=== PATIENT | female | born 1950 | race Caucasian/White ===

== ENCOUNTER 2017-03-07 07:31 | Outpatient (CLI) | payer MEDICARE, BC ==
--- NOTE | 2017-03-07 12:56 | MRI Preliminary Report ---
Exam: MRI UPPER ARM/HUMERUS RT W/O IMPRESSION: 1. Long head biceps tendon grossly intact. 2. Mild biceps tenosynovitis versus extension of joint fluid. 3. No evidence of muscle strain. 4. Distal biceps tendon not included in the epxls-ja-ipbn. If there is clinical concern for abnormali ty at the distal biceps tendon, MRI of the elbow could be performed. 5. A 4.4 cm fat-containing lesion partially visualized in the biceps muscle. This is incompletely serena luated on the current exam. Findings suggestive of an intramuscular lipoma. [facility] MUSCULOSKELET[facility] SECTION SITE ID: [id number]
--- NOTE | 2017-03-07 13:56 | MRI Report ---
EXAM: RIGHT HUMERUS MRI WITHOUT CONTRST EXAM DATE: 03/07/2017 08:47 AM. CLINICAL HISTORY: Spontaneous rupture of other tendons, right upper arm. COMPARISON: None. TECHNIQUE: Multiplanar, multisequence T1-weighted and fluid-sensitive sequences of the humerus/upper arm without contrast. Other: None. FINDINGS: Bones: No fracture or bone lesion. Joint Spaces: Minimal joint effusion partially visualized at the glenohumeral joint. Evaluation of th is shoulder limited on the large qegkw-ci-rnoh. Tendons: Where visualized, the extra-articular portion of the biceps tendon is intact. Small amount o f excess fluid in the tendon sheath. Evaluation of the intra-articular portion limited on these field s-of-view. Distal biceps tendon not included in the razve-pi-cueq. Musculature: No edema or fatty atrophy. A 1.8 by 1.5 by at least 4.3 cm fat-containing lesion partial ly visualized in the mid to distal aspect of the biceps muscle. This extends outside the jpbcg-lh-drv w. Other: The subcutaneous tissues are unremarkable. IMPRESSION: 1. Long head biceps tendon grossly intact. 2. Mild biceps tenosynovitis versus extension of joint fluid. 3. No evidence of muscle strain. 4. Distal biceps tendon not included in the qpomi-yq-xgzs. If there is clinical concern for abnormali ty at the distal biceps tendon, MRI of the elbow could be performed. 5. A 4.4 cm fat-containing lesion partially visualized in the biceps muscle. This is incompletely serena luated on the current exam. Findings suggestive of an intramuscular lipoma. If there is clinical conc aminata at this site (i.E. Focal pain or increasing size), MRI with IV contrast could be performed for fu rther characterization. [facility]CULOSKE[facility] SECTION Referring Provider Line: [phone] SITE ID: [id number]
== END 2017-03-07 07:32 | disposition home or self-care (01) ==
LOC: DI 07:31
PROVIDERS: ATTEND Family Medicine
DX: M66.821 Spontaneous rupture of other tendons, right upper arm (principal)

== ENCOUNTER 2017-11-20 19:31 | Outpatient (CLI) | payer MEDICARE, BC ==
--- NOTE | 2017-11-20 20:56 | Ultrasound Report ---
Reason: LEG PAIN, LEFT Procedure Date: 11/20/2017 Accession Number: [id number] / [id number] Procedure: US - Duplex Ext Veins Left CPT Code: FULL RESULT: EXAM: LEFT LOWER EXTREMITY VENOUS ULTRASOUND EXAM DATE: 11/20/2017 08:12 PM. CLINICAL HISTORY: Left leg pain. COMPARISON: None. TECHNIQUE: Real-time sonographic vascular imaging was performed by the vegetable preparer through the lower extremity utilizing both color-flow and Doppler spectral analysis. Multiple patient account representative static images were saved for review. FINDINGS: Common Femoral Vein (CFV): Normal. CFV-GSV Junction: Normal. Profunda Femoral Vein (PFV): Normal. Femoral Vein (FV) Prox: Normal. Femoral Vein (FV) Mid: Normal. Femoral Vein (FV) Dist: Normal. Popliteal Vein: Normal. Posterior Tibial Veins: Normal. Peroneal Veins: Normal. Other: None. IMPRESSION: Normal exam. No evidence for deep venous thrombosis. [facility]
--- NOTE | 2017-11-21 12:16 | XRAY Report ---
Reason: LEG PAIN, LEFT Procedure Date: 11/20/2017 Accession Number: [id number] / [id number] Procedure: XR - Knee 3 View LT CPT Code: FULL RESULT: EXAM: LEFT KNEE RADIOGRAPHY EXAM DATE: 11/20/2017 08:49 PM. CLINICAL HISTORY: Left knee pain. COMPARISON: None. TECHNIQUE: 3 views. FINDINGS: Bones: Normal. No fractures or bone lesions. Joints: Minor marginal spurring is seen in the patellofemoral compartment. No significant joint space narrowing or malalignment is demonstrated. Soft Tissues: Normal. No soft tissue swelling. IMPRESSION: Minimal degenerative change is seen. No acute findings. [facility]
== END 2017-11-20 19:32 | disposition home or self-care (01) ==
LOC: DI 19:31
PROVIDERS: ATTEND Family Medicine
DX: M79.605 Pain in left leg (principal)

== ENCOUNTER 2018-08-19 08:00 | Outpatient (CLI) | payer MEDICARE, BC | END 2018-08-19 23:59 | disposition home or self-care (01) | LOC: LAB.WCP 08:00 | PROVIDERS: ATTEND Family Medicine | DX: N39.0 Urinary tract infection, site not specified (principal) | CPT/HCPCS: 87086; 87181 ==

== ENCOUNTER 2019-01-08 07:53 | Outpatient (CLI) | payer MEDICARE, BC ==
--- NOTE | 2019-01-09 10:26 | Mammography Report ---
Reason: SCREENING MAMMO Procedure Date: 01/08/2019 Accession Number: [id number] / [id number] Procedure: [facility] - Screening Mammo w/Emir CPT Code: Final Report FULL RESULT: EXAM: Screening Mammo w/Emir DATE: 01/08/2019 8:32 AM CLINICAL HISTORY: Screening encounter. TECHNIQUE: (B) - Bilateral CC and MLO views were obtained. COMPARISON: 03/21/2015 and 10/13/2012. PARENCHYMAL PATTERN: (D) - The breast(s) demonstrate(s) heterogeneously dense fibroglandular parenchyma. FINDINGS: Typically benign intramammary lymph nodes with preserved fatty foreign and expected architecture are seen bilaterally on 3-D imaging. There are no suspicious masses, calcifications, or areas of distortion. IMPRESSION: Benign findings. BI-RADS category 2. RECOMMENDATION: (ANNUAL) - Recommend routine annual screening mammography. BI-RADS CATEGORY: (2) - Benign Findings. STANDARD QUALIFYING STATEMENTS: 1. This examination was not reviewed with the aid of Computer-Aided Detection (CAD). 2. A negative or benign imaging report should not preclude biopsy if clinically suspicious findings are present. 3. Dense breasts may obscure an underlying neoplasm. 4. This examination was reviewed with the aid of 3D breast imaging (tomosynthesis).
== END 2019-01-08 07:54 | disposition home or self-care (01) ==
LOC: DI 07:53
PROVIDERS: ATTEND Family Medicine
DX: Z12.31 Encounter for screening mammogram for malignant neoplasm of breast (principal)
CPT/HCPCS: 77063; 77067

== ENCOUNTER 2019-01-08 07:54 | Outpatient (CLI) | payer MEDICARE, BC ==
--- NOTE | 2019-01-09 11:14 | DEXA Report ---
Reason: ASYMPTOMATIC POSTMENOPAUSAL Procedure Date: 01/08/2019 Accession Number: [id number] / [id number] Procedure: DEX - Dexa Spine and/or Hip CPT Code: Final Report FULL RESULT: EXAM: Dexa Spine and/or Hip DATE: 01/08/2019 8:34 AM CLINICAL HISTORY: ASYMPTOMATIC POSTMENOPAUSAL TECHNIQUE: Dual energy x-ray absorptiometry (DXA) was performed on a [employer] System. Regions measured are the AP Spine, femoral neck, and if needed forearm. COMPARISON: None. In accordance with the International Society for Clinical Densitometry (ISCD) guidelines, data from previous exams may be reanalyzed using current recommendations and techniques. This is done to allow a more accurate basis for comparison with the current study. FINDINGS: The data for the lumbar spine is as follows: BMD (g/cm/cm) T-SCORE Z-SCORE REGION L1 0.842 -2.4 -1.1 L2 0.976 -1.9 -0.5 L3 0.991 -1.7 -0.4 L4 0.904 -2.5 -1.1 TOTAL 0.928 -2.1 -0.8 NOTE: All evaluable vertebrae are used for classification The data for the hip is as follows: BMD (g/cm/cm) T-SCORE Z-SCORE REGION Neck 0.698 -2.4 -1.0 TOTAL 0.729 -2.2 -1.0 NOTE: The femoral neck or total proximal femur, whichever is lowest, is used for classification. IMPRESSION: THE WHO CLASSIFICATION BASED ON THE INTERNATIONAL REFERENCE STANDARD IS OSTEOPENIA. THE FRACTURE RISK IS INCREASED. RECOMMENDATION: Patients with diagnosis of osteoporosis or osteopenia should have regular bone mineral density assessment. For those eligible for Medicare, routine testing is allowed once every 2 years. Testing frequency can be increased for patients who have rapidly progressing disease or for those who are receiving medical therapy to restore bone mass. COMMENT: World Health Organization (WHO) definitions for osteoporosis and osteopenia: NORMAL BMD: T-score at -1.0 or higher, fracture risk is low OSTEOPENIA BMD: T-score between -1.0 and -2.5, fracture risk is increased. OSTEOPOROSIS BMD: T-score at -2.5 or lower, fracture risk is high. National Osteoporosis Foundation recommends: 1. Obtain adequate dietary calcium (at least 1200 mg per day) and vitamin D (400-800 international units per day). 2. Participate, as appropriate, in regular weightbearing and muscle-strengthening exercise. 3. Avoid tobacco use and reduce alcohol and caffeine intake. 4. For more detailed information see the website at www.NOF.org.
== END 2019-01-08 07:55 | disposition home or self-care (01) ==
LOC: DI 07:54
PROVIDERS: ATTEND Family Medicine
DX: M85.89 Other specified disorders of bone density and structure, multiple sites (principal); Z78.0 Asymptomatic menopausal state
CPT/HCPCS: 77080

== ENCOUNTER 2020-03-31 08:00 | Outpatient (CLI) | payer MEDICARE, BC ==
[2020-03-31 18:24] LABS: CALCIUM 9.1 mg/dL (8.5-10.3); CREATININE 0.8 mg/dL (0.4-1.0)
== END 2020-03-31 23:59 | disposition home or self-care (01) ==
LOC: LAB.WCP 08:00
PROVIDERS: ATTEND Family Medicine
DX: E11.9 Type 2 diabetes mellitus without complications (principal)
CPT/HCPCS: 36415; 80048; 83036

== ENCOUNTER 2020-08-31 08:00 | Outpatient (CLI) | payer MEDICARE, BC | END 2020-08-31 23:59 | disposition home or self-care (01) | LOC: LAB.WCP 08:00 | PROVIDERS: ATTEND Internal Medicine Endocrinology, Diabetes & Metabolism | DX: E10.9 Type 1 diabetes mellitus without complications (principal) | CPT/HCPCS: 36415; 82947 ==

== ENCOUNTER 2021-11-14 09:17 | Outpatient (CLI) | payer MEDICARE, BC ==
--- NOTE | 2021-11-15 12:51 | Mammography Report ---
BILATERAL DIGITAL SCREENING MAMMOGRAM 3D/2D: 11/14/2021 CLINICAL: Routine screening. Comparison is made to exams dated: 01/08/2019 mammogram, 03/21/2015 mammogram, and 10/13/2012 mammogram - [facility]. Both breasts are heterogeneously dense, which may obscure small masses (category c / 51-75% glandula r tissue). No significant masses, calcifications, or other findings are seen in either breast. There has been no significant interval change. IMPRESSION: NEGATIVE There is no mammographic evidence of malignancy. A 1 year screening mammogram is recommended. Based on the Tyrer Cuzick model (a risk assessment model) the patients lifetime risk is 5.5% and her 10 year risk is 4.1%. According to the ACR, ACS, and NCCN guidelines, an annual breast MRI exam chrissie g with mammogram is recommended if the patients lifetime risk is 20% or greater. This exam was interpreted at Station ID: [id number]. NOTE: For mammograms, a report in lay terms will be sent to the patient. Approximately 15% of breast malignancies will not be visualized mammographically. In the management of a palpable breast mass, a negative mammogram must not discourage biopsy of a clinically suspicious lesion. Electronically Signed By: Mery [email or web address]/[email or web address]:11/14/2021 14:51:29 ACR BI-RADS Category 1: Negative [id number] PARENCHYMAL PATTERN: (D) - The breast(s) demonstrate(s) heterogeneously dense fibroglandular nabil hough. BI-RADS CATEGORY: (1) - 1 RECOMMENDATION: (ANNUAL) - Recommend routine annual screening mammography. [id number] 1 year screening LATERALITY: (B)
== END 2021-11-14 09:18 | disposition home or self-care (01) ==
LOC: DI.N 09:17
PROVIDERS: ATTEND Family Medicine
DX: Z12.31 Encounter for screening mammogram for malignant neoplasm of breast (principal)